=== PATIENT | female | born 1990 | race Caucasian/White ===

== ENCOUNTER 2024-09-16 14:05 | Outpatient (CLI) | payer BC | END 2024-09-16 14:06 | disposition home or self-care (01) | LOC: CSHLAB 14:05 | PROVIDERS: ATTEND Obstetrics & Gynecology | DX: Z01.812 Encounter for preprocedural laboratory examination (principal); N84.0 Polyp of corpus uteri | CPT/HCPCS: 84703; 85027; 86850; 86900; 86901 ==